=== PATIENT | female | born 1955 | race Caucasian/White ===

== ENCOUNTER 2016-12-12 08:00 | Inpatient (IN) | payer BC ==
[2016-12-06 12:09] VITALS: BMI 33.4
[2016-12-12] MEDS ORDERED: PROPOFOL 20 ML ONE ×3 (11:03)
[2016-12-12] MEDS ORDERED: oxyCODONE HCL 10 MG SUSTAINED ACTING TABLET ONE (11:15)
[2016-12-12] MEDS ORDERED: GABAPENTIN 300 MG CAPSULE (FP) ONE (11:15)
[2016-12-12] MEDS ORDERED: CELECOXIB 200 MG CAPSULE ONE (11:16)
[2016-12-12] MEDS ORDERED: ROPIVICAINE 0.2%/MORPH PF/KETOROLAC - 51ML DISP.SYRINGE IA ONE ×2 (11:41→12:39)
[2016-12-12] MEDS ORDERED: TRANEXAMIC ACID 1000 MG/10 ML VIAL IVPUSH ONE (11:41)
[2016-12-12] MEDS ORDERED: oxyCODONE HCL 10 MG SUSTAINED ACTING TABLET PO ONE (11:41)
[2016-12-12] MEDS ORDERED: CEFAZOLIN 2 GM in DEXTROSE 5%-WATER - 50 ML IVPB ONE (11:41)
[2016-12-12] MEDS ORDERED: CELECOXIB 200 MG CAPSULE PO ONE (11:41)
[2016-12-12] MEDS ORDERED: GABAPENTIN 300 MG CAPSULE (FP) PO ONE (11:41)
[2016-12-12] MEDS ORDERED: ROPIVACAINE HCL 0.5% 30ML VIAL ONE (12:02)
[2016-12-12] MEDS ORDERED: MIDAZOLAM HCL 2 MG/2 ML SINGLE DOSE VIAL ONE (12:02)
[2016-12-12] MEDS ORDERED: SODIUM CHLORIDE 0.9% P/F 10 ML VIAL IJ ONE (12:02)
[2016-12-12] MEDS ORDERED: DEXAMETHASONE SOD PHOSPHATE/PF 10 MG/ML SDV ONE (12:02)
[2016-12-12] MEDS ORDERED: ceFAZolin SODIUM 1 GM VIAL ONE ×2 (12:39→12:44)
[2016-12-12] MEDS ORDERED: TRANEXAMIC ACID 1000 MG/10 ML VIAL ONE ×4 (12:39→17:05)
[2016-12-12] MEDS ORDERED: VANCOMYCIN 1,000 MG VIAL (RESTRICTED TO ID ONLY) ONE (12:39)
[2016-12-12] MEDS ORDERED: BUPIVACAINE HCL/PF 0.5% (5MG/ML) 10 ML VIAL ONE (12:42)
[2016-12-12] MEDS ORDERED: DEXAMETHASONE SOD PHOSPHATE 4 MG/1 ML VIAL ONE (12:44)
[2016-12-12] MEDS ORDERED: ONDANSETRON 4 MG/2 ML VIAL ONE (12:44)
[2016-12-12] MEDS ORDERED: oxyCODONE HCL 5 MG TABLET PO PRN (16:49)
[2016-12-12] MEDS ORDERED: ONDANSETRON 4 MG/2 ML VIAL IVPUSH PRN (16:49)
[2016-12-12] MEDS ORDERED: MAG HYDROX/AL HYDROX/SIMETH 30 ML UNIT-DOSE CUP PO PRN (17:46)
[2016-12-12] MEDS ORDERED: MAGNESIUM HYDROX 2400MG/30ML ORAL SUSPENSION 30 ML CUP PO PRN (17:46)
[2016-12-12] MEDS ORDERED: ONDANSETRON 4 MG/2 ML VIAL IVPB PRN (17:46)
--- NOTE | 2016-12-12 17:46 | OP ---
Operative Note - Note: Operative Date: 12/12/16 Pre-Operative Diagnosis: left knee OA/RA Operation: left TKA Post-Operative Diagnosis: Same as Pre-op Surgeon: Javier Rodriguez Abnormal Psychology Teacher: Beth Walton Anesthesia: Spinal Estimated Blood Loss (mls): 300
[2016-12-12] MEDS ORDERED: ACETAMINOPHEN 325 MG TABLET (FP) ONE (17:58)
[2016-12-12] MEDS: KETOROLAC TROMETHAMINE 30 MG/1 ML VIAL IVPUSH SCH ×2 (18:00→18:01)
[2016-12-12] MEDS: ACETAMINOPHEN 325 MG TABLET (FP) PO SCH ×2 (18:00→18:02)
[2016-12-12] MEDS ORDERED: CEFAZOLIN 2 GM in DEXTROSE 5%-WATER - 50 ML IVPB SCH (18:00)
[2016-12-12] MEDS ORDERED: LACTATED RINGERS SOLUTION 1,000 ML IV SCH (18:00)
[2016-12-12] MEDS: traMADol HCL 50 MG TABLET PO SCH ×2 (18:00→18:02)
[2016-12-12] MEDS: LACTATED RINGERS SOLUTION 1,000 ML IV SCH (18:01)
[2016-12-12] MEDS: oxyCODONE HCL 5 MG TABLET PO PRN (20:41)
[2016-12-12] MEDS: CEFAZOLIN 2 GM/D5W 50 ML IVPB SCH (20:42)
[2016-12-12] MEDS: SENNOSIDES/DOCUSATE COMBO (SENNA PLUS) TABLET (UD) PO SCH (21:22)
[2016-12-12] MEDS: oxyCODONE HCL 10 MG SUSTAINED ACTING TABLET PO SCH (21:23)
[2016-12-12] MEDS: GABAPENTIN 300 MG CAPSULE (FP) PO SCH (21:23)
[2016-12-12] MEDS: CELECOXIB 200 MG CAPSULE PO SCH (21:23)
[2016-12-12] MEDS: ASCORBIC ACID 500 MG TABLET (FP) PO SCH (21:23)
[2016-12-12] MEDS: FERROUS SO4 325 MG TABLET (FP) PO SCH (21:23)
[2016-12-12] MEDS ORDERED: GABAPENTIN 300 MG CAPSULE (FP) PO SCH (22:00)
[2016-12-13] MEDS: KETOROLAC TROMETHAMINE 30 MG/1 ML VIAL IVPUSH SCH ×3 (00:19→11:57)
[2016-12-13] MEDS: ACETAMINOPHEN 325 MG TABLET (FP) PO SCH ×4 (00:20→18:17)
[2016-12-13] MEDS: traMADol HCL 50 MG TABLET PO SCH ×4 (00:21→18:17)
[2016-12-13] MEDS: CEFAZOLIN 2 GM/D5W 50 ML IVPB SCH (05:39)
[2016-12-13 08:49] LABS: MCHC 33.7 g/dl (32.0-36.0); MEAN CELL VOLUME 86.2 fl (80-96); MEAN PLT VOLUME 10.1 fl (7.5-11.1); PLATELET COUNT 287 K/MM3 (134-434); WHITE BLOOD COUNT 12.8 K/mm3 (4.0-10.0)
--- NOTE | 2016-12-13 08:54 | PN ---
Progress Note (short form) - Note Progress Note: S: Pt. in a chair. No c/o O: VAS 6/10 ankle pain, 4/10 knee pain A/P: POD #1 s/p left tkr with adductor canal cath and selective tibial n. block. doing well. 1. Cath intact 2. Continue po pain meds as ordered
[2016-12-13] MEDS: GABAPENTIN 300 MG CAPSULE (FP) PO SCH ×2 (09:21→21:44)
[2016-12-13] MEDS: SENNOSIDES/DOCUSATE COMBO (SENNA PLUS) TABLET (UD) PO SCH ×2 (09:21→21:44)
[2016-12-13] MEDS: PANTOPRAZOLE 40 MG TABLET (FP) PO SCH (09:21)
[2016-12-13] MEDS: FERROUS SO4 325 MG TABLET (FP) PO SCH ×2 (09:22→21:43)
[2016-12-13] MEDS: ASPIRIN 325 MG TABLET PO SCH (09:22)
[2016-12-13] MEDS: CELECOXIB 200 MG CAPSULE PO SCH ×2 (09:22→21:44)
[2016-12-13] MEDS: MULTIVITAMINS (DAILY MVI) TABLET (FP) PO SCH (09:23)
[2016-12-13] MEDS: ASCORBIC ACID 500 MG TABLET (FP) PO SCH ×2 (09:23→21:43)
[2016-12-13] MEDS: oxyCODONE HCL 10 MG SUSTAINED ACTING TABLET PO SCH ×2 (09:23→21:44)
[2016-12-13] MEDS: oxyCODONE HCL 5 MG TABLET PO PRN ×2 (09:35→16:58)
[2016-12-13 09:50] LABS: COCKROFT - GAULT 98.566
[2016-12-13] MEDS ORDERED: LEVOTHYROXINE NA 125 MCG TABLET (FP) PO ONE (10:46)
--- NOTE | 2016-12-13 13:10 | PN ---
Progress Note (short form) - Note Progress Note: Pt seen and examined. Comfortable. No complaints. Afebrile Selected Entries 12/13/16 12/13/16 05:00 08:41 Temperature 98.4 F Pulse Rate 92 H Respiratory 20 Rate Blood Pressure 102/57 O2 Sat by Pulse 97 Oximetry (%) Oxygen Delivery Nasal Cannula Method Laboratory Tests 12/13/16 12/13/16 08:00 08:00 WBC 12.8 H Hgb 11.6 Hct 34.4 Plt Count 287 Sodium 140 Potassium 4.6 Chloride 105 Carbon Dioxide 29 Anion Gap 6 L BUN 13 Creatinine 1.0 Random Glucose 191 H Calcium 9.0 Gen: NAD LLE: c/d/i, NVID A/P 61yo female POD#1 s/p L TKA 1. PT/OOB - WBAT LLE 2. D/C home tomorrow
--- NOTE | 2016-12-13 14:22 | SURG ---
Surgery Front Desk Auxiliary Note Front Desk Auxiliary: Beth Walton PA-C Date of Service: 12/12/16 Diagnosis: left knee OA/RA Procedure: left TKA I was present for the entirety of the operative procedure. For further detail, please refer to operative report. Visit type - Case Type Case Type: Scheduled Admission - Emergency Emergency Visit: No - New patient This patient is new to me today: Yes Date on this admission: 12/12/16 - Critical Care Critical Care patient: No
[2016-12-13] MEDS ORDERED: ROPIVACAINE HCL 0.5% 30ML VIAL ONE (14:23)
--- NOTE | 2016-12-13 15:10 | PN ---
Progress Note (short form) - Note Progress Note: Patient doing well. Adductor canal catheter pulled after 20 mL 0.5% ropivicaine administered. Catheter with tip intact. Insertion site clean and dry.
[2016-12-13] MEDS: LACTATED RINGERS SOLUTION 1,000 ML IV SCH (18:17)
[2016-12-14] MEDS: ACETAMINOPHEN 325 MG TABLET (FP) PO SCH ×3 (00:30→12:36)
[2016-12-14] MEDS: traMADol HCL 50 MG TABLET PO SCH ×3 (00:30→12:35)
[2016-12-14] MEDS: oxyCODONE HCL 5 MG TABLET PO PRN (06:07)
[2016-12-14] MEDS ORDERED: LEVOTHYROXINE NA 125 MCG TABLET (FP) PO SCH (07:00)
[2016-12-14 07:37] LABS: MCH 28.6 pg (25.7-33.7); MCHC 33.3 g/dl (32.0-36.0); MEAN CELL VOLUME 85.8 fl (80-96); MEAN PLT VOLUME 8.9 fl (7.5-11.1); PLATELET COUNT 218 K/MM3 (134-434); RDW 14.9 % (11.6-15.6); WHITE BLOOD COUNT 8.8 K/mm3 (4.0-10.8)
[2016-12-14] MEDS: ASPIRIN 325 MG TABLET PO SCH (08:00)
[2016-12-14] MEDS: ASCORBIC ACID 500 MG TABLET (FP) PO SCH (10:19)
[2016-12-14] MEDS: MULTIVITAMINS (DAILY MVI) TABLET (FP) PO SCH (10:19)
[2016-12-14] MEDS: oxyCODONE HCL 10 MG SUSTAINED ACTING TABLET PO SCH (10:20)
[2016-12-14] MEDS: GABAPENTIN 300 MG CAPSULE (FP) PO SCH (10:20)
[2016-12-14] MEDS: CELECOXIB 200 MG CAPSULE PO SCH (10:22)
[2016-12-14] MEDS: FERROUS SO4 325 MG TABLET (FP) PO SCH (10:23)
[2016-12-14] MEDS: SENNOSIDES/DOCUSATE COMBO (SENNA PLUS) TABLET (UD) PO SCH (10:23)
[2016-12-14] MEDS: PANTOPRAZOLE 40 MG TABLET (FP) PO SCH (10:23)
[2016-12-14 14:23] VITALS: BP 129/63; PULSE 88; TEMP 98.1
--- NOTE | 2016-12-14 15:19 | PN ---
Progress Note (short form) - Note Progress Note: Pt seen and examined. Comfortable. No complaints. Afebrile Selected Entries 12/14/16 12/14/16 09:00 14:00 Temperature 98.1 F Pulse Rate 88 Respiratory 19 Rate Blood Pressure 129/63 O2 Sat by Pulse 95 91 L Oximetry (%) Oxygen Delivery Room Air Room Air Method Laboratory Tests 12/14/16 07:32 WBC 8.8 D Hgb 10.4 L D Hct 31.0 L Plt Count 218 D Gen: NAD LLE: c/d/i, NVID A/P 61yo female POD#2 s/p L TKA 1. PT/OOB - WBAT LLE 2. D/C home today
--- NOTE | 2016-12-14 15:30 | DS ---
Physical Examination Vital Signs: Vital Signs Temperature 98.1 F 12/14/16 14:00 Pulse Rate 88 12/14/16 14:00 Respiratory Rate 19 12/14/16 14:00 Blood Pressure 129/63 12/14/16 14:00 O2 Sat by Pulse Oximetry (%) 91 L 12/14/16 14:00 Labs: CBC, BMP 12/14/16 07:32 12/13/16 08:00 Discharge Summary Reason For Visit: LEFT KNEE OSTEOARTHRITIS Current Active Problems Osteoarthritis of left knee (Acute) Procedures: Principal: left total knee replacement Hospital Course: Admitted for elective surgery. Procedure performed without complications. Pt received postoperative antibiotic prophylaxis and DVT ppx. Ambulated with physical therapy. Stable for discharge home with outpatient followup. Condition: Stable - Instructions Diet, Activity, Other Instructions: Dr. Rodriguez - Knee Replacement Instructions Keep the Aquacel dressing on until removed by Dr. Rodriguez in 10-14 days - it is antibacterial and waterproof and you can shower with it on. Call the office for a follow-up appointment with Dr. Rodriguez in 10-14 days. Take one Aspirin 325mg daily for 6 weeks to prevent blood clots in your legs. Take one Pantoprazole 40mg daily for 6 weeks to protect against heartburn and ulcers. Take Celebrex 200mg twice daily for 30 days to reduce swelling and inflammation. Take a multivitamin and vitamin C supplement daily For pain: *Mild pain (1-3/10): Take 1 Tramadol tablet every 4 hours as needed. Moderate pain (4-6/10): Take 1 Tramadol tablet and 1 Percocet tablet every 4 hours as needed. Severe pain (7-10/10): Take 1 Tramadol tablet and 2 Percocet tablets every 4 hours as needed. Activity: You can put as much weight on the operative leg as you want. Right after you get home, there will be a physical therapist coming to your house to help you walk around and bend/straighten your knee. After your follow-up appointment, you will be sent for more intensive outpatient physical therapy which will include machines and equipment that the home therapist cannot bring to your house. Always use a walker or cane for balance and to prevent falls. Disposition: VNS/HOME HEALTH CARE - Home Medications Comprehensive Discharge Medication List: Ambulatory Orders Budesonide/Formeterol Fumarate [SYMBICORT 160/4.5mcg -] 2 inh PO BID 12/06/16 Calcium Carbonate/Vitamin D3 [Calcium 600 + Vit D Tablet] 1 each PO DAILY Cyclobenzaprine HCl [Flexeril 10 mg] 10 mg PO Q8H PRN 12/06/16 Duloxetine HCl [Cymbalta] 60 mg PO DAILY 12/06/16 Levothyroxine [Synthroid -] 125 mcg PO DAILY 12/06/16 Tiotropium [place] [Spiriva] 1 inh IH DAILY 12/06/16 Ascorbic Acid [Vitamin C -] 500 mg PO BID tablet 12/14/16 Aspirin [ASA -] 325 mg PO DAILY@0800 tablet 12/14/16 Celecoxib [CeleBREX -] 200 mg PO BID #60 tab 12/14/16 Multivitamins [Multivit (RH Formulary)] 1 tab PO DAILY tab 12/14/16 Oxycodone HCl/Acetaminophen [Percocet 5-325 mg Tablet] 1 - 2 tab PO Q4H PRN #60 tab MDD 10 12/14/16 Pantoprazole Sodium [Protonix -] 40 mg PO DAILY #40 tab 12/14/16 Sennosides/Docusate Sodium [Pericolace -] 1 tablet PO BID tablet 12/14/16 Tramadol HCl [Ultram -] 50 mg PO Q4H PRN #90 tablet MDD 6 12/14/16
--- NOTE | 2016-12-16 12:53 | PATH ---
Surgical Pathology Report Patient Name: HIRA CARLISLE Med. Rec. #: [id number] /Age/Gender: 1955 (Age: 61) / F Account: [id number] Location: [facility] MED-SURG Taken: 12/12/2016 Received: 12/12/2016 Reported: 12/16/2016 Physicians: Javier Rodriguez M.D. Specimen(s) Received BONE LEFT KNEE Clinical History Left knee osteoarthritis Final Diagnosis BONE, LEFT KNEE, TOTAL REPLACEMENT: DEGENERATIVE JOINT DISEASE. Electronically Signed Alma Saini M.D. Gross Description Received in formalin labeled "bone left knee," is a 12.0 x 10.0 x 1.7 cm aggregate of multiple irregular portions of bone and soft tissue. The tibial plateau measures 7.7 x 5.1 x 1.6 cm. There is a 1.4 cm in greatest dimension area of eburnation present. The remaining articular surfaces are birch-yellow and diffusely granular. The underlying trabecular bone is yellow and hard. Bench Worker Helper sections are submitted in one cassette, following decalcification. /12/13/2016 [facility]
--- NOTE | 2017-01-17 09:11 | SPEC ---
DATE OF OPERATION: 12/12/2016 PREOPERATIVE DIAGNOSES: Left knee osteoarthritis, rheumatoid arthritis. POSTOPERATIVE DIAGNOSES: Left knee osteoarthritis, rheumatoid arthritis. PROCEDURE: Left total knee replacement. ATTENDING: Genny Arzola MD MENTAL HEALTH COUNSELOR: KENDRA Martinez ANESTHESIA: Spinal plus sedation. ESTIMATED BLOOD LOSS: 300 mL. SPECIMENS: Resected bone and pannus-like tissue was sent for Pathology analysis. COMPLICATIONS: None. DISPOSITION: The patient was transferred to the PACU in stable condition. IMPLANTS USED: [place] Triathlon size 3 femoral component, Triathlon size 4 tibial component, 12-mm tibial and femoral stems, 11-mm polyethylene component, and a 32-mm patellar component. INDICATIONS: This is a 61-year-old female who presented to the office with severe left knee pain. She had a history of osteoarthritis, as well as rheumatoid arthritis, and was diagnosed with severe arthritis of her left knee. She was initially treated nonoperatively with injections, medications, and physical therapy, but continued to have severe pain. She was subsequently indicated for a left total knee replacement. The risks, benefits and alternatives of the procedure were explained to the patient in great detail and she elected to proceed with the surgery. On the day of surgery, the patient was taken to the operating room and placed on the OR table. Spinal anesthesia was administered by the anesthesiologist. The patient was then positioned supine on the table and all bony prominences were padded. A nonsterile tourniquet was placed on the proximal thigh. The knee was then prepped and draped in the usual sterile fashion and intravenous antibiotics were given for infection prophylaxis. A surgical time-out was then performed with the team, and the patients identity, procedure, side, availability of implants, and the administration of antibiotics was confirmed. The leg was then elevated and exsanguinated, and the tourniquet was inflated. With the knee flexed, a midline incision was made and carried down through the subcutaneous fat to the underlying retinaculum. A medial parapatellar arthrotomy was performed. This was followed by a subperiosteal dissection of the tissue off the proximal, medial tibia. A portion of fat pad was removed from under the patellar tendon, and a small portion of fat was excised off the distal supracondylar femur. The knee was then flexed further and the anterior horn of the lateral meniscus was released from the midline. Next, the anterior and posterior cruciate ligaments were transected. Osteophytes were removed from both the femur and tibia. Grade 4 changes were noted diffusely throughout the knee. Hohmann retractors were then placed around the distal femur. The starting drill was used to enter the intramedullary canal. The starting point had been chosen by checking the radiographs and anatomy. Proper alignment and intramedullary placement was then confirmed by placing the long narrow kahlil into the femur. Next, the distal femoral cutting guide was adjusted to 6 degrees of valgus and pinned to the femur. The bone resection was assessed using an aure wing. An approximately 10 mm distal cut was made and the cut pieces measured. Once this was complete, the sizing guide was used to determine which size femoral component should be used. Next, the appropriately sized 4-in-1 cutting block was then placed at the correct amount of external rotation and the aure wing was used to assure that there would be no notching of the anterior cortex of the femur. Once this was done, Hohmann retractors were used to protect the medial and lateral collateral ligaments, and all appropriate bone cuts were made. Attention was then turned to the tibia. Hohmann retractors were used to translate the tibia anteriorly and protect the collateral ligaments. The medial and lateral menisci were removed. The extramedullary tibial alignment guide was then placed and adjusted for rotation, varus/valgus, and slope. The height of the cutting block was adjusted to the level of the desired bone resection and then pinned in place. The proximal tibia was then cut with a saw and the bone was removed and measured. Once this was completed, trial components were placed and the knee was taken through a full range of motion. Soft tissue balance was assessed in both flexion and extension and found to be appropriate. The knee was stable throughout the full range of motion. The knee was then put into extension and the patella everted. The synovium around the patella was circumscribed with electrocautery. A caliper was used to measure the patellar thickness and a saw was then used to resect the patella at the chondro-osseous junction. The cut surface was then sized and drilled for the appropriate patellar button, with care taken to medialize it. A trial patella was then placed and the knee was again taken through a full range of motion. The knee was found to have both good balance and good patellar tracking. All of the components were removed except the tibial base plate. The appropriate instrumentation was used to drill and punch the proximal tibia for the keel of the final component. All bony surfaces were then cleaned with pulsatile lavage and dried. Bone cement was then prepared on the back table, and final components were cemented in place in the usual fashion. Extruded cement was removed. The polyethylene trial was placed, the knee was put into extension, and axial pressure was applied for compression while the cement hardened. The patellar button was similarly cemented into place. Once the cement had hardened, the knee was taken through a full range of motion to assess stability, balance, and patellar tracking. This was found to be optimal and the trial polyethylene was exchanged for the appropriately sized real implant. The wound was then thoroughly irrigated with normal saline via pulsatile lavage. A 3-minute dilute Betadine lavage was performed according to the [place] protocol. The wound was then irrigated again with normal saline and wound closure. No. 1 Polysorb and 0 V-Loc 180 barbed sutures were used to close the arthrotomy. No. 1 Polysorb and 2-0 Polysorb sutures were used in the subcutaneous tissues. The skin was closed using both 3-0 V-Loc 90 suture in a running subcuticular fashion and SwiftSet skin adhesive. Once this was completed, a sterile Aquacel dressing and compressive Robles wrap was applied. The tourniquet was then deflated and the patient was awakened and taken to the PACU in stable condition. Because of the patient's history of rheumatoid arthritis and the fact that the bone quality during the case was found to be soft, we elected to put stems on both the femoral and tibial components to minimize the risk of loosening and subsidence. In addition, a constrained polyethylene liner was used because of concerns about soft tissue integrity. A large amount of pannus was found within the knee during the soft tissue dissection. This was felt to be related to rheumatoid arthritis and for this reason the stemmed components were used. GENNY ARZOLA M.D. FREIDA/[id number]
== END 2016-12-14 16:10 | disposition home health service (06) | DRG 470 ==
LOC: FM/S 10:34
PROVIDERS: ADMIT Student in an Organized Health Care Education/Training Program; ATTEND Student in an Organized Health Care Education/Training Program
PROC: 0SRD0JZ Replacement of Left Knee Joint with Synthetic Substitute, Open Approach (ICD-10-PCS; principal; 2016-12-12 14:00)
DX: M17.12 Unilateral primary osteoarthritis, left knee (principal); J44.9 Chronic obstructive pulmonary disease, unspecified; K21.9 Gastro-esophageal reflux disease without esophagitis; E11.9 Type 2 diabetes mellitus without complications; M06.9 Rheumatoid arthritis, unspecified
CPT/HCPCS: 36415; 73560-TC-LT; 80048; 85027; 88304-TC; 88311-TC; 94010; 94760; 97010-GP; 97116-GP; 97161-GP